=== PATIENT | male | born 1985 | race Two or more races ===

== ENCOUNTER 2019-02-24 06:19 | Emergency (ER) | payer MEDICAID ==
[~2019-02-24] VITALS: Ht 175.3 cm; Wt 74.8 kg
[2019-02-24 06:23] VITALS: BP 102/68
== END 2019-02-24 08:01 | disposition home or self-care (01) ==
LOC: ED 06:19
DX: J18.9 Pneumonia, unspecified organism (principal)
CPT/HCPCS: 87491; 87591; Q0092

== ENCOUNTER 2019-03-02 09:04 | Emergency (ER) | payer MEDICAID ==
[~2019-03-02] VITALS: Ht 185.4 cm; Wt 72.6 kg
[2019-03-02 09:22] VITALS: Ht 185.4 cm; Wt 72.6 kg
[2019-03-02 11:12] VITALS: BP 99/55
== END 2019-03-02 11:12 | disposition home or self-care (01) ==
LOC: ED 09:04
DX: Z13.89 Encounter for screening for other disorder (principal)